=== PATIENT | female | born 1995 | race Caucasian/White ===

== ENCOUNTER 2019-08-03 22:06 | Inpatient (IN) ==
[2019-08-03] MEDS ORDERED: Naloxone 0.4 MG/ML INJ IVP PRN (22:08)
[2019-08-03] MEDS ORDERED: Metoclopramide 10 MG/2 ML VIAL IVP PRN (22:08)
[2019-08-03] MEDS ORDERED: Famotidine 20 MG/2 ML VIAL IVP PRN (22:08)
[2019-08-03] MEDS ORDERED: Lidocaine 1% 20 ML MDV INFILT PRN (22:08)
[2019-08-03] MEDS ORDERED: *HR* Nalbuphine 10 MG/ML AMPUL IVP PRN (22:08)
[2019-08-03] MEDS ORDERED: Ondansetron 4 MG/2 ML VIAL IVP PRN (22:08)
[2019-08-03] MEDS ORDERED: miSOPROStol 25 MCG TABLET VG PRN (22:10)
[2019-08-03 22:35] LABS: Basophils % 0.2 %; Eosinophils # 0.1 K/mcL (0.0-0.6); Eosinophils % 1.4 %; Hematocrit 35.7 % (35.3-44.9); Hemoglobin 12.4 g/dL (11.5-15.4); Immature Granulocytes % 0.6 % (0-4); Lymphocytes # 1.7 K/mcL (0.6-4.6); Lymphocytes % 17.1 %; Mean Corpuscular HGB Conc 34.7 g/dL (31.6-35.5); Mean Corpuscular Hemoglobin 31.6 pg (28.0-33.3); Mean Corpuscular Volume 90.8 fL (83.0-100.0); Mean Platelet Volume 9.9 fL (9.4-12.4); Monocytes # 0.9 K/mcL (0.0-1.3); Monocytes % 9.1 %; Platelet Count 211 K/mcL (140-400); Red Blood Count 3.93 M/mcL (3.82-4.97); Red Cell Distribution Width 13.2 % (11.5-14.5); Segmented Neutrophils % 71.6 %; White Blood Count 9.7 K/mcL (4.3-11.1)
[2019-08-03 22:46] LABS: Amphetamine Screen,Urine Negative ng/mL (Cutoff=1000); Barbiturate Screen,Urine Negative ng/mL (Cutoff=200); Benzodiazepines Screen,Urine Negative ng/mL (Cutoff=200); Cannabinoid Screen,Urine Negative ng/mL (Cutoff = 50); Cocaine Screen,Urine Negative ng/mL (Cutoff= 300); Opiate Screen,Urine Negative ng/mL (Cutoff=300); Phencyclidine Screen,Urine Negative ng/mL (Cutoff=25)
[2019-08-03] MEDS ORDERED: FLU Vac QV 19-20 (6Month+)/PF 0.5 ML SYRINGE IM ONE (22:53)
[2019-08-04] MEDS ORDERED: Epidural Premix (fent/bupiv) 110 ML EP SCH (08:15)
[2019-08-04] MEDS ORDERED: Oxytocin 20 units/ LR 1000 mL 20 UNIT/1,000 ML BAG IVC ONE (08:25)
[2019-08-04] MEDS: Ringers Solution, Lactated 1,000 ML IVC SCH ×2 (08:35→22:11)
[2019-08-04] MEDS ORDERED: *HR* Phenylephrine 10 MG/ML VIAL ONE (12:05)
[2019-08-04] MEDS ORDERED: *HR* FentaNYL (PF) 100 MCG/2 ML VIAL ONE (12:05)
[2019-08-04] MEDS ORDERED: Bupivacaine-MPF 0.25% 10 ML VIAL ONE (12:05)
[2019-08-05] MEDS ORDERED: Azithromycin 1,000 MG in 0.9 % Sodium Chloride 250 ML IVPB ONE (02:45)
[2019-08-05] MEDS ORDERED: *HR* Oxytocin 10 UNIT/ML VIAL IM ONE (02:51)
[2019-08-05] MEDS ORDERED: Lidocaine/EPI 1:200k 2% PF 20 ML VIAL ONE (02:51)
[2019-08-05] MEDS ORDERED: *HR* Morphine Sulfate/PF 10 MG/10 ML AMPUL ONE (02:52)
[2019-08-05] MEDS ORDERED: Ondansetron 4 MG/2 ML VIAL ONE (03:49)
[2019-08-05] MEDS ORDERED: *HR* HYDROmorphone (PF) 1 MG/ML SYRINGE IVP PRN (04:12)
[2019-08-05] MEDS ORDERED: *HR* OxyCODONE Immed Rel 5 MG TABLET PO PRN (04:12)
[2019-08-05] MEDS ORDERED: Acetaminophen IV 1,000 MG/100 ML INFUS..BTL IVPB ONE (04:12)
[2019-08-05] MEDS ORDERED: Ondansetron 4 MG/2 ML VIAL IVP ONE (04:12)
[2019-08-05] MEDS ORDERED: *HR* Promethazine 25 MG/ML VIAL IVP PRN (04:12)
[2019-08-05] MEDS ORDERED: Oxytocin 20 units/ LR 1000 mL 20 UNIT/1,000 ML BAG IVC ONE (04:26)
[2019-08-05] MEDS ORDERED: Metoclopramide 10 MG/2 ML VIAL IVP PRN (06:13)
[2019-08-05] MEDS ORDERED: Rho Immune Globulin 1,500 UNIT SYRINGE IM ONE ×2 (06:13→21:33)
[2019-08-05] MEDS ORDERED: Sennosides 8.6 MG TABLET PO PRN (06:13)
[2019-08-05] MEDS ORDERED: Oxytocin 20 units/ LR 1000 mL 20 UNIT/1,000 ML BAG IVC SCH (06:13)
[2019-08-05] MEDS ORDERED: *HR* OxyCODONE/APAP 5/325 TABLET PO PRN (06:13)
[2019-08-05] MEDS ORDERED: Ondansetron 4 MG/2 ML VIAL IVP PRN (06:13)
[2019-08-05] MEDS ORDERED: ceFAZolin 2,000 MG in Water for inj. (sterile) 10 ML IVP SCH (08:00)
[2019-08-05] MEDS: Prenatal Vit/FA 1 EACH TABLET PO SCH (08:30)
[2019-08-05] MEDS: ceFAZolin 2,000 MG in 0.9 % Sodium Chloride 100 ML IVP SCH ×2 (08:31→16:12)
[2019-08-05] MEDS: Ibuprofen 600 MG TABLET PO PRN ×2 (10:01→16:11)
[2019-08-06] MEDS: ceFAZolin 2,000 MG in 0.9 % Sodium Chloride 100 ML IVP SCH (00:37)
[2019-08-06] MEDS: Ibuprofen 600 MG TABLET PO PRN ×4 (01:04→21:03)
[2019-08-06 06:01] LABS: Basophils % 0.1 %; Eosinophils # 0.2 K/mcL (0.0-0.6); Eosinophils % 1.1 %; Hematocrit 23.2 % (35.3-44.9); Immature Granulocytes % 0.9 % (0-4); Lymphocytes # 1.6 K/mcL (0.6-4.6); Lymphocytes % 11.3 %; Mean Corpuscular HGB Conc 34.1 g/dL (31.6-35.5); Mean Corpuscular Hemoglobin 31.6 pg (28.0-33.3); Mean Corpuscular Volume 92.8 fL (83.0-100.0); Mean Platelet Volume 9.8 fL (9.4-12.4); Monocytes # 1.3 K/mcL (0.0-1.3); Monocytes % 9.1 %; Neutrophils # 11.2 K/mcL (1.6-8.9); Platelet Count 135 K/mcL (140-400); Red Cell Distribution Width 13.8 % (11.5-14.5); Segmented Neutrophils % 77.5 %; White Blood Count 14.5 K/mcL (4.3-11.1)
[2019-08-06 06:06] LABS: Hemoglobin 7.9 g/dL (11.5-15.4)
[2019-08-06] MEDS: Simethicone 80 MG TAB.CHEW PO PRN ×2 (07:44→21:03)
[2019-08-06] MEDS: Prenatal Vit/FA 1 EACH TABLET PO SCH (07:44)
[2019-08-06 17:29] LABS: Basophils % 0.1 %; Eosinophils # 0.2 K/mcL (0.0-0.6); Eosinophils % 1.8 %; Hematocrit 23.4 % (35.3-44.9); Hemoglobin 7.9 g/dL (11.5-15.4); Immature Granulocytes % 0.7 % (0-4); Lymphocytes # 1.5 K/mcL (0.6-4.6); Lymphocytes % 11.5 %; Mean Corpuscular HGB Conc 33.8 g/dL (31.6-35.5); Mean Corpuscular Volume 94.7 fL (83.0-100.0); Mean Platelet Volume 10.5 fL (9.4-12.4); Monocytes # 1.1 K/mcL (0.0-1.3); Monocytes % 8.2 %; Neutrophils # 10.4 K/mcL (1.6-8.9); Platelet Count 177 K/mcL (140-400); Red Blood Count 2.47 M/mcL (3.82-4.97); Red Cell Distribution Width 13.6 % (11.5-14.5); Segmented Neutrophils % 77.7 %; White Blood Count 13.3 K/mcL (4.3-11.1)
[2019-08-07] MEDS: Ibuprofen 600 MG TABLET PO PRN (06:26)
[2019-08-07 06:40] LABS: Basophils % 0.2 %; Eosinophils # 0.3 K/mcL (0.0-0.6); Eosinophils % 2.7 %; Hematocrit 22.8 % (35.3-44.9); Hemoglobin 7.8 g/dL (11.5-15.4); Immature Granulocytes % 0.8 % (0-4); Lymphocytes # 1.7 K/mcL (0.6-4.6); Lymphocytes % 17.4 %; Mean Corpuscular HGB Conc 34.2 g/dL (31.6-35.5); Mean Corpuscular Hemoglobin 31.8 pg (28.0-33.3); Mean Corpuscular Volume 93.1 fL (83.0-100.0); Mean Platelet Volume 9.9 fL (9.4-12.4); Monocytes # 0.8 K/mcL (0.0-1.3); Monocytes % 7.8 %; Platelet Count 155 K/mcL (140-400); Red Blood Count 2.45 M/mcL (3.82-4.97); Red Cell Distribution Width 13.5 % (11.5-14.5); Segmented Neutrophils % 71.1 %; White Blood Count 9.9 K/mcL (4.3-11.1)
[2019-08-07] MEDS ORDERED: FLU Vac QV 19-20 (6Month+)/PF 0.5 ML SYRINGE IM ONE (07:35)
[2019-08-07 07:40] VITALS: BP 106/71
[2019-08-07] MEDS: Prenatal Vit/FA 1 EACH TABLET PO SCH (07:50)
[2019-08-07] MEDS ORDERED: Lidocaine -MPF 1% 5 ML AMPUL INFILT ONE (09:55)
[2019-08-07] MEDS ORDERED: Etonogestrel 68 MG IMPLANT IL ONE (09:55)
== END 2019-08-07 12:51 | disposition home or self-care (01) | DRG 787 ==
LOC: 1NENULAB 22:06 → 1NENUOBS 08-05 06:36
PROVIDERS: ADMIT Obstetrics & Gynecology; ATTEND Obstetrics & Gynecology